=== PATIENT | female | born 1995 | race Two or more races ===

== ENCOUNTER 2025-02-09 14:00 | Inpatient (IN) | payer OTHER ==
[~2025-02-09] VITALS: Ht 154.9 cm; Wt 100.7 kg
[2025-02-25] MEDS ORDERED: RINGERS SOLUTION,LACTATED 1,000 ML IV SCH (05:45)
[2025-02-25] MEDS ORDERED: AMPICILLIN SODIUM 2,000 MG VIAL IV ONE (05:45)
[2025-02-25 05:50] VITALS: BP 131/81
[2025-02-25] MEDS ORDERED: PRENATAL TABLE1 EAC1 PO (06:21)
[2025-02-25 06:52] LABS: BASO % 0.2 % (0.1-1.2); EOS # 0.04 (0.04-0.54); EOS % 0.4 % (0.7-7.0); LYMPH # 1.68 (1.18-3.74); LYMPH % 15.1 % (19.3-53.1); MEAN PLATELET VOLUME 9.70 fl (9.4-12.4); MONO # 0.65 (0.24-0.82); MONO % 5.9 % (4.7-12.5); NEUT # 8.64 (1.56-6.13); NEUT % 77.7 % (34.0-71.1); RED CELL DISTRIBUTION WIDTH 15.2 % (11.6-14.4)
[2025-02-25 07:26] LABS: INR 0.96
[2025-02-25 07:33] VITALS: BP 140/78
[2025-02-25 07:35] LABS: ALT/SGPT 12.0 U/L (12-78); AST/SGOT 11.0 U/L (15-37); BILIRUBIN TOTAL 0.21 mg/dL (0.3-1.2); BUN CREA RATIO 13.0 (7.0-25.0); CREATININE SERUM 0.54 mg/dL (0.55-1.02); GFR 131.68; GLOBULINA 3.7 G/DL (2.4-3.5); GLUCOSE FASTING 137.0 mg/dL (65-100); OSMOLALITY SERUM 281.0 MOSM/KG (275-295)
[2025-02-25] MEDS ORDERED: OXYTOCIN 20 UNITS/500ML RL PIGGYBAG IV ONE (07:45)
[2025-02-25] MEDS ORDERED: OXYTOCIN 500 ML IV ONE (08:00)
[2025-02-25] MEDS ORDERED: CITRIC ACID/SODIUM CITRATE 30 ML BLIST.PACK PO ONE (08:15)
[2025-02-25] MEDS ORDERED: METOCLOPRAMIDE HCL 10 MG in DEXTROSE 5 % IN WATER 50 ML IV ONE (08:15)
[2025-02-25] MEDS ORDERED: CEFAZOLIN SODIUM 1,000 MG VIAL IV ONE (08:15)
[2025-02-25] MEDS ORDERED: AMPICILLIN SODIUM 1,000 MG VIAL IV SCH (09:00)
[2025-02-25 11:54] VITALS: BP 121/59
[2025-02-25 15:38] VITALS: BP 141/71
[2025-02-25] MEDS ORDERED: CEFAZOLIN SODIUM 1,000 MG VIAL ONE (15:54)
[2025-02-25] MEDS ORDERED: OXYTOCIN 10 UNITS/ML VIAL ONE (16:07)
[2025-02-25] MEDS ORDERED: ERYTHROMYCIN BASE OPHT 1GM EACH TUBE OP ONE (16:08)
[2025-02-25] MEDS ORDERED: MORPHINE SULFATE 4 MG/ML CARTRIDGE IV SCH (17:28)
[2025-02-25] MEDS ORDERED: OXYTOCIN 1,000 ML IV ONE (17:30)
[2025-02-25] MEDS ORDERED: KETOROLAC TROMETHAMINE 30 MG VIAL IV SCH (18:00)
[2025-02-25] MEDS ORDERED: MORPHINE SULFATE 4 MG/ML VIAL IV ONE (18:50)
[2025-02-25] MEDS ORDERED: AMPICILLIN SODIUM 1,000 MG VIAL ONE (19:23)
[2025-02-25] MEDS ORDERED: KETOROLAC TROMETHAMINE 30 MG VIAL ONE (19:24)
[2025-02-25 21:30] VITALS: BP 132/83
[2025-02-26 01:27] VITALS: BP 131/75; O2SAT 97
[2025-02-26] MEDS ORDERED: ACETAMINOPHEN 500 MG GEL..CAP PO SCH (06:00)
[2025-02-26 06:26] VITALS: BP 129/84
[2025-02-26 06:47] LABS: BASO % 0.2 % (0.1-1.2); EOS # 0.01 (0.04-0.54); EOS % 0.1 % (0.7-7.0); LYMPH # 1.39 (1.18-3.74); LYMPH % 11.1 % (19.3-53.1); MEAN PLATELET VOLUME 10.30 fl (9.4-12.4); MONO # 0.88 (0.24-0.82); MONO % 7.0 % (4.7-12.5); NEUT # 10.19 (1.56-6.13); NEUT % 81.2 % (34.0-71.1); RED CELL DISTRIBUTION WIDTH 15.3 % (11.6-14.4)
[2025-02-26 08:15] VITALS: BP 118/78; O2SAT 98
[2025-02-26] MEDS ORDERED: GABAPENTIN 300 MG CAPSULE PO SCH (09:00)
[2025-02-26] MEDS ORDERED: DOCUSATE SODIUM 100MG CAP PO SCH (09:00)
[2025-02-26] MEDS ORDERED: IRON FUM,PS/FOLIC/BCOMP,C NO.9 1 CAP CAPSULE PO SCH (09:00)
[2025-02-26] MEDS ORDERED: PNV,CALCIUM 72/IRON/FOLIC ACID 1 TAB TABLET PO SCH (09:00)
[2025-02-26] MEDS ORDERED: SIMETHICONE 125 MG CAPSULE PO SCH (09:00)
[2025-02-26 13:00] VITALS: BP 115/77
[2025-02-26 16:22] VITALS: BP 134/82
[2025-02-26 19:00] VITALS: BP 117/71
[2025-02-27 01:08] VITALS: BP 125/82; O2SAT 98
[2025-02-27 08:19] VITALS: BP 150/70; O2SAT 98
== END 2025-02-27 12:23 | disposition home or self-care (01) | DRG 788 ==
LOC: LDR 02-22 14:00 → O/R 02-25 16:24 → OB/GYN 02-25 18:55
PROVIDERS: Obstetrics & Gynecology Gynecology; ADMIT Obstetrics & Gynecology; ATTEND Obstetrics & Gynecology
PROC: 4A1HXCZ Monitoring of Products of Conception, Cardiac Rate, External Approach (ICD-10-PCS; 2025-02-25)
PROC: 10D00Z1 Extraction of Products of Conception, Low, Open Approach (ICD-10-PCS; principal; 2025-02-25 17:45)
DX: O82 Encounter for cesarean delivery without indication (principal); Z3A.40 40 weeks gestation of pregnancy; Z37.0 Single live birth

== ENCOUNTER → 2025-02-17 | Outpatient (CLI) | payer OTHER | END | disposition home or self-care (01) | LOC: NST 11:54 | PROVIDERS: ATTEND Obstetrics & Gynecology | DX: Z34.83 Encounter for supervision of other normal pregnancy, third trimester (principal) ==

== ENCOUNTER 2025-02-24 14:05 | Outpatient (CLI) | payer OTHER ==
[2025-02-25] MEDS ORDERED: PRENATAL TABLE1 EAC1 PO (06:21)
== END 2025-02-24 15:51 | disposition home or self-care (01) ==
LOC: NST 14:05
PROVIDERS: ATTEND Obstetrics & Gynecology
DX: Z34.83 Encounter for supervision of other normal pregnancy, third trimester (principal)